=== PATIENT | female | born 1950 | race Caucasian/White ===

== ENCOUNTER → 2016-07-23 | Outpatient (CLI) | payer OTHER | LOC: FIMAGING 12:06 | PROVIDERS: ATTEND Registered Nurse | DX: Z12.31 Encounter for screening mammogram for malignant neoplasm of breast (principal) | CPT/HCPCS: G0202 ==

== ENCOUNTER 2016-12-23 13:41 | Observation (INO) | payer OTHER ==
--- NOTE | 2016-12-23 14:27 | CPEKG ---
Heart Rate: 65 RR Interval: 923 P-R Interval: 152 QRSD Interval: 74 QT Interval: 412 QTC Interval: 429 P [place]: 48 QRS [place]: 34 T Wave [place]: 46 EKG Severity - NORMAL ECG - EKG Impression: SINUS RHYTHM Electronically Signed By: Teo Mohamud 23-Dec-2016 15:02:50
[2016-12-23 14:53] LABS: % IMMATURE GRANULYOCYTES 0.4 % (0.0-1.1); ABSOLUTE IMMATURE GRANULOCYTES 0.03 10^3/uL (0.00-0.10); ADD DIFF? NO; ADD MORPH? NO; ADD SCAN? NO; ATYPICAL LYMPHOCYTE FLAG 0 (0-99); FRAGMENT RBC FLAG 0 (0-99); HEMOGLOBIN 14.9 g/dL (12.6-16.3); LEFT SHIFT FLG 0 (0-99); LIPEMIA HEMOLYSIS FLAG 90 (0-99); MEAN CELL HEMOGLOBIN 31.9 pg (27.9-34.1); MEAN CELL HEMOGLOBIN CONCENTR. 33.9 g/dL (32.4-36.7); MEAN CELL VOLUME 94.2 fL (81.5-99.8); MEAN PLATELET VOLUME 10.3 fL (8.7-11.7); PLATELET CLUMPS FLAG 0 (0-99); PLATELET COUNT 259 10^3/uL (150-400); RED BLOOD CELL COUNT 4.67 10^6/uL (4.18-5.33); RED CELL DISTRIBUTION WIDTH 12.6 % (11.5-15.2)
[2016-12-23] MEDS ORDERED: ASPIRIN 81 MG CHEWABLE TAB PO ONE (14:56)
--- NOTE | 2016-12-23 14:58 | EDPHY ---
H & P Time Seen by Provider: 12/23/16 14:27 HPI/ROS: CHIEF COMPLAINT: Chest tightness and shortness of breath HISTORY OF PRESENT ILLNESS: This 66-year-old wound is really active and swims 5 out of the 7 days of the week. She does have a history of hyperlipidemia and her father had a myocardial infarction at age 32. Patient presents with 3 days of symptoms. Thursday she noticed that this going up the stairs made her breathless and took her 15 minutes to recover. 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 With exertion she gets chest tightness and shortness of breath not associated with coughing. Relieved by rest. Symptoms moderate. Ongoing for the last 3 days. REVIEW OF SYSTEMS: Eye: no change in vision ENT: no sore throat Cardiac: HPI Pulmonary: No cough or hemoptysis Abdomen: no vomiting, diarrhea, abdominal pain Musculoskeletal: No leg swelling or edema Skin: no rash Neuro: no headache Constitutional: no fever : no urinary symptoms A comprehensive 10 point review of systems is otherwise negative aside from elements mentioned in the history of present illness. PAST MEDICAL HISTORY: Hyperlipidemia and sleep apnea. Family history positive for father with myocardial infarction at age 32 but he had rheumatic fever. Social history: Nonsmoker General Appearance: Alert and conversant, cooperative. Eyes: No scleral icterus. ENT, Mouth: Normal mucous membranes. Respiratory: Normal respiratory effort, breath sounds equal, lungs are clear to auscultation. Cardiovascular: Regular rate and rhythm. Gastrointestinal: Abdomen is soft and non tender. Neurological: Alert and oriented x3. Normally conversant. Face symmetric, normal movement and sensation in all extremities. Skin: Warm and dry, no rashes. Musculoskeletal: No peripheral edema and no joint swelling. No calf tenderness. Psychiatric: Not agitated. Emergency Department course/MDM: Oral aspirin 324, low probability for pulmonary embolism, D-dimer screening. Troponin. Likely need admission with moderately high suspicion for ACS. 1545: Discussed results, a suspicion high for unstable angina. Admit to hospitalist with cardiology consultation. Oscar 1553. Tanner Proctor 1629; in ED to see patient at 1645. Smoking Status: Never smoked Constitutional: Initial Vital Signs Temperature (C) 36.5 C 12/23/16 13:47 Heart Rate 68 12/23/16 13:47 Respiratory Rate 16 12/23/16 13:47 Blood Pressure 142/83 H 12/23/16 13:47 O2 Sat (%) 95 12/23/16 13:47 O2 Delivery Mode Room Air Allergies/Adverse Reactions: oxycodone Allergy (Verified 12/23/16 13:46) Home Medications: Medication Instructions Recorded Levothyroxine 12/23/16 Lipitor 12/23/16 Medical Decision Making - Diagnostics EKG Interpretation: 12-lead EKG interpreted by me; official reading is in trace master. My interpretation is sinus rhythm rate 65 no acute ischemic changes. Imaging Results: Imaging Impressions Chest X-Ray 12/23/16 14:56 Impression: No acute pulmonary disease. Chest x-ray, personally interpreted Differential Diagnosis: Differential diagnosis considered for chest pain including but not limited to myocardial ischemia, aortic dissection, pericarditis, pulmonary embolus, chest wall pain, pleural inflammation and pulmonary infectious causes. - Data Points Laboratory Results: Laboratory Results 12/23/16 14:30 12/23/16 14:30 12/23/16 12/23/16 12/23/16 15:20 14:30 14:30 WBC 7.02 10^3/uL 10^3/uL (3.80-9.50) RBC 4.67 10^6/uL 10^6/uL (4.18-5.33) Hgb 14.9 g/dL g/dL (12.6-16.3) Hct 44.0 % % (38.0-47.0) MCV 94.2 fL fL (81.5-99.8) MCH 31.9 pg pg (27.9-34.1) MCHC 33.9 g/dL g/dL (32.4-36.7) RDW 12.6 % % (11.5-15.2) Plt Count 259 10^3/uL 10^3/uL (150-400) MPV 10.3 fL fL (8.7-11.7) Neut % (Auto) 53.3 % % (39.3-74.2) Lymph % (Auto) 36.3 % % (15.0-45.0) Lee % (Auto) 8.0 % % (4.5-13.0) Eos % (Auto) 1.4 % % (0.6-7.6) Baso % (Auto) 0.6 % % (0.3-1.7) Nucleat RBC Rel Count 0.0 % % (0.0-0.2) Absolute Neuts (auto) 3.74 10^3/uL 10^3/uL (1.70-6.50) Absolute Lymphs (auto) 2.55 10^3/uL 10^3/uL (1.00-3.00) Absolute Monos (auto) 0.56 10^3/uL 10^3/uL (0.30-0.80) Absolute Eos (auto) 0.10 10^3/uL 10^3/uL (0.03-0.40) Absolute Basos (auto) 0.04 10^3/uL 10^3/uL (0.02-0.10) Absolute Nucleated RBC 0.00 10^3/uL 10^3/uL (0-0.01) Immature Gran % 0.4 % % (0.0-1.1) Immature Gran # 0.03 10^3/uL 10^3/uL (0.00-0.10) D-Dimer 0.45 ug/mLFEU ug/mLFEU (0.00-0.50) Sodium 144 mEq/L mEq/L (134-144) Potassium 4.0 mEq/L mEq/L (3.5-5.2) Chloride 107 mEq/L mEq/L (97-110) Carbon Dioxide 23 mEq/l mEq/l (22-31) Anion Gap 14 mEq/L mEq/L (8-16) BUN 12 mg/dL mg/dL (7-23) Creatinine 0.8 mg/dL mg/dL (0.6-1.0) Estimated GFR > 60 Glucose 94 mg/dL mg/dL (70-100) Calcium 9.3 mg/dL mg/dL (8.5-10.4) Troponin I < 0.012 ng/mL ng/mL (0.000-0.034) 12/23/16 14:20 WBC RBC Hgb Hct MCV MCH MCHC RDW Plt Count MPV Neut % (Auto) Lymph % (Auto) Lee % (Auto) Eos % (Auto) Baso % (Auto) Nucleat RBC Rel Count Absolute Neuts (auto) Absolute Lymphs (auto) Absolute Monos (auto) Absolute Eos (auto) Absolute Basos (auto) Absolute Nucleated RBC Immature Gran % Immature Gran # D-Dimer REJ Sodium Potassium Chloride Carbon Dioxide Anion Gap BUN Creatinine Estimated GFR Glucose Calcium Troponin I Medications Given: Discontinued Medications Aspirin (Aspirin) 324 mg PO EDNOW ONE Stop: 12/23/16 14:57 Last Admin: 12/23/16 15:02 Dose: 324 mg Departure - Departure Disposition: [facility] Inpatient Acute Clinical Impression: Dyspnea on exertion, Chest pain Condition: Good
[2016-12-23 15:02] LABS: ANION GAP 14 mEq/L (8-16); CALCIUM 9.3 mg/dL (8.5-10.4); CARBON DIOXIDE 23 mEq/l (22-31); CHLORIDE 107 mEq/L (97-110); CREATININE 0.8 mg/dL (0.6-1.0); GLOMERULAR FILTRATION RATE > 60; GLUCOSE 94 mg/dL (70-100); SODIUM 144 mEq/L (134-144)
[2016-12-23 15:13] LABS: TROPONIN I < 0.012 ng/mL (0.000-0.034)
[2016-12-23] MEDS ORDERED: IOPAMIDOL (ISOVUE 370) 100 ML BTL IV ONE (17:33)
[2016-12-23] MEDS ORDERED: ACETAMINOPHEN 325 MG TAB PO PRN (18:08)
[2016-12-23] MEDS ORDERED: ONDANSETRON DISINTEGRATING 4 MG TAB PO PRN (18:08)
[2016-12-23] MEDS ORDERED: ONDANSETRON 4 MG/2 ML VIAL IVP PRN (18:08)
--- NOTE | 2016-12-23 18:13 | GCON ---
[f rep st] CONSULTATION CARDIOLOGY CONSULTATION DATE OF CONSULTATION: 12/23/2016 REFERRING PHYSICIAN: Teo Mohamud MD INDICATIONS: Dyspnea on exertion. HISTORY OF PRESENT ILLNESS: The patient is a pleasant 66-year-old female seen in the emergency depa rtment in consultation for dyspnea on exertion. She has no known cardiovascular or pulmonary diseas e. Her cardiac risk factor profile includes hyperlipidemia and possible family history of early ath erosclerosis. At her baseline, she is fairly healthy. She notes that she is very active on a regul ar basis and likes to swim, do water fitness and go hiking. She is able to participate in these act ivities without any limitations. Beginning about 4 days ago, she began to experience exertional dys pnea. She notes that she gets very short of breath when she does minimal activities, such as going up and down her stairs, loading fairly light objects in her car and trying to take care of her 1 and 3-year-old grandchildren. Oftentimes, she becomes very short of breath to the point where she need s to stop and sit down and rest. She tried to do swimming in the pool the other day, however, becam e extraordinarily short of breath and had near-syncope. She had to rest and ultimately had to stop doing this activity. With her symptoms of dyspnea, she denies anginal quality chest discomfort. Sh e also notes no orthopnea, PND, or edema. She denies fever, chills or sweats and notes no cough. S he has not had any edema. She has no history of DVT or PE. She has no history of recent upper resp iratory infection. She has no history of malignancy. She denies wheezing. She has not had any hem optysis. Because of these symptoms, she came to the emergency department today. On arrival here, s he was noted to be mildly hypertensive at 142/83. Her heart rate was 68 beats per minute with room air saturations of 95%. Her initial ECG was unremarkable and her initial lab tests including tropon in and D-dimer were also normal. PAST MEDICAL HISTORY: 1. Hyperlipidemia. 2. Hypothyroidism. 3. Obstructive sleep apnea, on CPAP for the last 3 months. She reports that this has made her feel profoundly better. 4. History of torn meniscus, managed conservatively. PAST SURGICAL HISTORY: In 1975, she had an ACL repair on her right knee. In 2002, she also had a r ight ACL repair in her right knee. HOME MEDICATIONS: These include levothyroxine, atorvastatin, occasional Advil, fish oil, vitamin D. ALLERGIES: Oxycodone which causes nausea. SOCIAL HISTORY: She is and accompanied by her . They have been for 30+ year s. They have 4 children together. 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 She likes to exercise as noted above. She does not use alcohol and denies smoking at the present time. She does have a 6 pack-year history of smoking although quit 30 years ago. FAMILY HISTORY: Apparently her father had rheumatic fever and at the age of 32 from complicati ons related to a myocardial infarction. She has been in foster care since age 17 and has no sibling s. REVIEW OF SYSTEMS: A full 10-point review of systems was performed and is otherwise negative. PHYSICAL EXAMINATION: VITAL SIGNS: Her blood pressure is 132/78 with a mean of 97. Her heart rate is 68, respiratory rate 18, room air saturation 94%. She is afebrile. GENERAL: She is a healthy pleasant white female, in no acute distress. HEENT: Normocephalic, atraumatic. She has anicteric sclerae. Oropharynx unremarkable. Carotids are 2+ bilaterally with no bruits. She has no jugular venous distention, adenopathy or thyromegaly. RESPIRATORY: She is breathing easily, resting comfor tably, using no accessory muscles. On auscultation, she has clear lung becerra bilaterally. CARDIAC : Precordial inspection is unremarkable. PMI is nondisplaced. She has no reproducible chest wall tenderness. On auscultation, she has a regular rate and rhythm without murmurs, gallops, or rubs. ABDOMEN: Soft, nontender, with normoactive bowel sounds. She has no masses or hepatosplenomegaly. Abdominal aorta is not palpable. EXTREMITIES: Warm and well perfused. She has no lower extremity edema. VASCULATURE: She has 2+ radial, dorsal pedal and posterior tibial pulses noted bilaterally . DATABASE: Her electrocardiogram demonstrates sinus rhythm with a rate of 65 beats per minute. She has minor ST-segment and T-wave flattening in aVL. Her chest x-ray is unremarkable. CBC is normal. D-dimer 0.45. Basic metabolic panel negative. Troponin 0.012. IMPRESSION: The patient is 66 years old and is generally fairly healthy. She presents today with a fairly compelling four-day history of lifestyle-limiting dyspnea on exertion, currently [place] [employer] functional class 3. Her symptoms are associated with occasional episodes of effort- induced near-syncope and severe fatigue. Her initial workup including basic labs and ECG as well as chest x-ray are unremarkable. Specifically, her troponin and D-dimer are negative. Certainly at t his point, the differential diagnosis is very broad. Initial concerns were for possible acute coron leanne syndrome, pulmonary embolism, pericardial disease or potentially acute valvular heart disease. She does not appear to be suffering from any form of pulmonary disease or infectious process at the present time, and her labs as stated above are normal. RECOMMENDATIONS: 1. She will be admitted to telemetry and monitored. 2. I have ordered additional laboratory tests to include brain natriuretic peptide, TSH, lipids and hemoglobin A1c. 3. I have ordered an echocardiogram. 4. I would like her to get a CTA despite her normal D-dimer. 5. She will be kept n.p.o. after midnight in anticipation of possible coronary angiogram tomorrow d epending on her workup and overnight hospital course. /[id number]/MODL
[2016-12-23 19:10] LABS: CHOLESTEROL 191 mg/dL (140-220); CHOLESTEROL/HDL RATIO 4.06 RATIO (1.00-4.44); HIGH DENSITY LIPOPROTEIN 47 mg/dL (40-85); LDL/HDL RATIO 2.34 RATIO (1.00-3.22); LOW DENSITY LIPOPROTEIN 110 mg/dL (80-100); NON-HIGH DENSITY LIPOPROTEIN 144 mg/dL (90-129); TRIGLYCERIDE 174 mg/dL (35-135); VERY LOW DENSITY LIPOPROTEINS 34 mg/dL (8-25)
--- NOTE | 2016-12-23 19:29 | GHP ---
[f rep st] HISTORY AND PHYSICAL DATE OF ADMISSION: 12/23/2016 CHIEF COMPLAINT: Shortness of breath. HISTORY OF PRESENT ILLNESS: A 66-year-old female with a history of GERD, hyperlipidemia, hypothyroidism and sleep apnea, presented to the ER for dyspnea with exertion. She denies any cardiac disease. She says she has noticed symptoms over the past week, worse over the last 4 days. She is short of breath with activities like climbing stairs. Denies any associated chest pain, associated nausea, vomiting, diaphoresis, numbness or tingling. No orthopnea. Has positive PND, that is new. No lower extremity swelling. She normally hikes and swims 5 days a week without any difficulty breathing. While swimming in the pool the other day she became very short of breath and almost passed out. No recent travel. No fevers, chills or sweats. No cough. REVIEW OF SYSTEMS: I completed a 10-point review of systems, negative except as noted in HPI. PAST MEDICAL HISTORY: Depression, diverticulitis, fibroids, GERD, hyperlipidemia, hypothyroidism, JAMAR started on CPAP 3 months ago. PAST SURGICAL HISTORY: Right ACL repair. SOCIAL HISTORY: Lives in [place], son is here with her. Two glasses of wine a week. Smoked 7 years, 1 pack a day, over 30 years ago. FAMILY HISTORY: Father of [place] at 32, had rheumatic fever. HOME MEDICATIONS: Levothyroxine, atorvastatin, Advil, fish oil, vitamin D. ALLERGIES: Oxycodone with nausea. PHYSICAL EXAM: VITAL SIGNS: Temperature 36.8, blood pressure 146/83, heart rate 52-60, respirations 16, 99% on room air. GENERAL: Well-appearing female, sitting up in bed, eating dinner with no acute distress. HEENT: PERRLA. EOMI. Oropharynx clear. CV: Bradycardic. No murmurs, gallops, or rubs. Trace pedal edema on the left. No JVD. LUNGS: Clear. No crackles or wheezing. ABDOMEN: Soft, nontender, nondistended. Positive bowel sounds. : No suprapubic tenderness. MUSCULOSKELETAL: 5/5 upper lower extremity strength. NEURO: 2 through 12 intact. PSYCHIATRIC: Alert and oriented x3. LABS: WBC 7, hemoglobin 14, hematocrit 42, platelets 259. Sodium 144, potassium 4.0, chloride 107, anion gap 14, BUN 12, calcium 9.2. Troponin less than 0.012. BNP and TSH are pending. CTA negative for PE. No dissection. Small hiatal hernia. No effusion. Chest x-ray personally reviewed by me. No effusion or edema. EKG, personally reviewed by me, normal sinus rhythm. No ST elevation. Mild ST flattening in lead III. ASSESSMENT AND PLAN: 1. Dyspnea: Differential includes acute coronary syndrome,infection, pulmonary embolism, or anginal equivalent. D-dimer and CTA negative for thrombosis or dissection. BNP is pending. Initial troponin and EKG are negative for ischemia. Dr. Proctor with Cardiology consulted, appreciate his assistance. TTE is pending. The patient may undergo cardiac cath in morning given symptoms may be an anginal equivalent. 2. Obstructive sleep apnea, continue CPAP. 3. Gastroesophageal reflux disease. Proton pump inhibitor. 4. Hyperlipidemia, statin. 5. Hypothyroidism, Synthroid. 6. Diet, n.p.o. after midnight. 7. Deep venous thrombosis prophylaxis. Lovenox. DISPOSITION: The patient warrants observation admission given dyspnea with exertion with possible anginal equivalent requiring telemetry echocardiogram. /[id number]/MODL MTDD
[2016-12-23 20:23] LABS: HEMOGLOBIN A1C 5.7 % (4.0-6.0)
[2016-12-24] MEDS ORDERED: diphenhydrAMINE 25 MG CAP PO ONE ×2 (08:35→13:29)
[2016-12-24] MEDS ORDERED: DIAZEPAM 5 MG TAB PO ONE (08:35)
[2016-12-24] MEDS ORDERED: ASPIRIN EC 325 MG TAB PO ONE ×2 (08:35→13:29)
[2016-12-24] MEDS ORDERED: Herbals/Supplements -Info Only PO SCH (09:00)
--- NOTE | 2016-12-24 09:04 | CPEKG ---
Heart Rate: 50 RR Interval: 1200 P-R Interval: 156 QRSD Interval: 72 QT Interval: 464 QTC Interval: 424 P [place]: 44 QRS [place]: 12 T Wave [place]: 59 EKG Severity - NORMAL ECG - EKG Impression: SINUS RHYTHM Electronically Signed By: Kashif Healy 24-Dec-2016 15:30:25
[2016-12-24] MEDS: ATORVASTATIN CALCIUM 10 MG TAB PO SCH (09:55)
[2016-12-24] MEDS: LEVOTHYROXINE 100 MCG TAB PO SCH (09:55)
--- NOTE | 2016-12-24 10:32 | ECHO ---
[id number] + + [address] : : [place] [address] : : [phone] + Adult Echocardiographic Report + ------+ :Name: SANJUANITA ROYAL DStudy Date: 12/24/2016 08:39 AM : : Hospital Admission Number: [id number] Locatio n: 203: :: 1950 Gender: Female Height: 68 in : :Age: 66 yrs Race: WH Weight: 175 lb : :Reason For Study: FRAGA : : BSA: 1.9 meters 2 : + ------+ MMode/2D Measurements \T\ Calculations IVSd: 0.89 cm LVIDd: 4.9 cm FS: 38.9 % Ao root diam: LVPWd: 0.78 cm LVIDs: 3.0 cm EDV(Teich): 3.5 cm 114.4 ml LA dimension: ESV(Teich): 3.6 cm 35.4 ml EF(Teich): 69.1 % LVLd ap4: 8.0 cm SV(MOD-sp4): EDV(MOD-sp4): 34.0 ml 51.0 ml LVLs ap4: 6.3 cm ESV(MOD-sp4): 17.0 ml EF(MOD-sp4): 66.7 % Normal Measurement Values: + + :LVIDd (3.5-5.7cm) IVSd (0.6-1.1cm) LVPWd (0.6-1.1cm) Aortic Root (2.0-3.7cm)Left Atrium (1.5-4.0cm): :LV Vol(d) (76-115ml) LV Vol(s) (29-48ml) Ejec Fraction (50-65%)PV Jason (0.6- 1.2m/s) TV Jason (0.4-1.0m/s) : :MV E Jason (0.8-1.0m/s)MV A Jason (0.3-1.0m/s)LVOT Jason (0.7-1.2m/s) Asc Ao Jason ( 0.9-1.8m/s) : + + Doppler Measurements \T\ Calculations MV E max jason: Ao V2 max: AI max jason: TR max jason: 65.2 cm/sec 119.4 cm/sec 438.7 cm/sec 186.0 cm/sec MV A max jason: Ao max PG: AI max P.0 mmHgTR max P.3 cm/sec 5.7 mmHg AI dec slope: 13.8 mmHg MV E/A: 1.2 210.1 cm/sec2 RAP systole: AI P1/2t: 611.6 msec5.0 mmHg RVSP(TR): 18.8 mmHg Left Ventricle The left ventricle is normal in size. There is normal left ventricular wall thickness. Left ventricular systolic function is normal. Ejection Fraction = 65-70%. No regional wall motion abnormalities noted. Right Ventricle The right ventricle is normal in size and function. Atria The left atrial size is normal. Right atrial size is normal. The interatrial septum is intact with no evidence for an atrial septal defect. Mitral Valve The mitral valve is normal in structure and function. There is no evidence of mitral valve prolapse. There is no mitral valve stenosis. There is trace mitral regurgitation. Tricuspid Valve Normal tricuspid valve. There is mild tricuspid regurgitation. Right ventricular systolic pressure is normal. Aortic Valve The aortic valve is trileaflet. The aortic valve opens well. There is no aortic stenosis. Mild aortic regurgitation. Pulmonic Valve The pulmonic valve is normal in structure and function. There is no pulmonic valvular regurgitation. Great Vessels The aortic root is normal size. Pericardium/Pleural There is no pericardial effusion. There is a fat pad seen. Conclusion A complete two-dimensional transthoracic echocardiogram was performed (2D, M-mode, Doppler and color flow Doppler). Technically limited study with poor acoustic windows. Normal LV size and wall motion. Left ventricular systolic function is normal. Ejection Fraction = 65-70%. Normal diastolic function. Normal appearing valves. There is mild tricuspid regurgitation. Mild aortic regurgitation. Right ventricular systolic pressure is normal. There is a fat pad seen. Final Reading Physician: Cande Gregorio signed on 12/24/2016 10:30 AM Ordering Physician: Jesus Proctor Performed By: Geneva Salazar, SULEMANCS
[2016-12-24] MEDS: ENOXAPARIN 40 MG/0.4 ML SYR SC SCH (11:32)
[2016-12-24] MEDS ORDERED: FAMOTIDINE 20 MG TAB ONE (13:29)
[2016-12-24] MEDS ORDERED: DIAZEPAM 5 MG TAB ONE (13:30)
[2016-12-24] MEDS ORDERED: LIDOCAINE 1% 300 MG/30 ML SDV ONE (13:55)
[2016-12-24] MEDS ORDERED: VERAPAMIL 5 MG/2 ML VIAL ONE (13:56)
[2016-12-24] MEDS ORDERED: IOPAMIDOL (ISOVUE-370) 150 ML BTL IV ONE (13:56)
[2016-12-24] MEDS ORDERED: HEPARIN 10,000 UNIT/10 ML MDV ONE (13:56)
[2016-12-24] MEDS ORDERED: fentaNYL 100 MCG/2 ML INJ ONE (14:04)
[2016-12-24] MEDS ORDERED: MIDAZOLAM 2 MG/2 ML VIAL ONE (14:04)
[2016-12-24] MEDS ORDERED: ATROPINE SULFATE 1 MG/10 ML SYR IVP PRN (15:19)
--- NOTE | 2016-12-24 15:28 | PDDXCAT ---
Diagnostic Cath Note - . 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 Trifurcates into the left anterior descending, ramus intermedius and circumflex vessels. Normal angiographic appearance. LAD: Large caliber transapical vessel. 2 diagonal branches identified. Normal angiographic appearance. LCX: Moderate caliber vessel. Single obtuse marginal branch. Normal angiographic appearance. RCA: Small caliber vessel. Codominant with the circumflex. Very tiny PDA identified. Otherwise angiographically normal. Ramus: Large caliber vessel. Supplies a large portion of the left anterolateral wall. Angiographically normal in appearance. EDP: 16 mmHg. LVEF: Hyperdynamic. Greater than 70% ejection fraction. Normal wall motion. Wall motion: Normal. - Findings-Right Heart Catheterization RA: 13 mmHg; 82.2% saturation. RV: 36/7/17 mmHg; 79.8% saturation. PA: 39/12/23 mmHg; 82.4% saturation. PAOP: 15 mmHg. AO: 155/74/108 mmHg. CO: 7.7 liters/minute; QP:QS of 0.9. Complications: None. Estimated blood loss: <50ml Closure method: TR Band Assessment: Angiographically normal epicardial coronary arteries in a codominant system with a large ramus intermedius. Normal to hyperdynamic left ventricular systolic function with no wall motion abnormalities. Well compensated right heart catheterization with normal filling pressures and cardiac output. No evidence of intracardiac shunt. No etiology identified to the patient's complaints of dyspnea. Plan: Patient will be evaluated for an alternate etiology to her dyspnea. Intervention: None. Patient Problems: Problems Problem Status Onset Chest pain Acute Dyspnea on exertion Acute
--- NOTE | 2016-12-24 17:23 | SOAPPROG ---
ASHLEY Progress Note Assessment/Plan: Assessment/Plan: At this point, the etiology for her dyspnea has not been defined. Her cardiovascular testing has been normal. We will plan to proceed with further testing to include pulmonary function testing and possibly an MVO2 test as an outpatient. I think that she can be discharged from the hospital after an appropriate period of monitoring. 12/24/16 17:21 Subjective: She has done well since she was admitted. She has not had any chest discomfort and at rest denies symptoms of dyspnea. Today, she underwent an echocardiogram as well as a right left heart catheterization. Those studies are located in the chart in separately dictated reports and were essentially normal. Objective: Vital Signs Temp Pulse Resp BP Pulse Ox 36.9 C 50 L 16 149/72 H 95 12/24/16 16:40 12/24/16 16:40 12/24/16 16:40 12/24/16 16:40 12/24/16 16:40 12/23/16 12/24/16 12/25/16 05:59 05:59 05:59 Intake Total 400 Balance 400 Physical Exam - Physical Exam General Appearance: WD/WN, no apparent distress Neck: non-tender, full range of motion Respiratory: lungs clear Cardiac/Chest: regular rate, rhythm, No edema, No gallop, No JVD Peripheral Pulses: 2+: carotid (R), carotid (L) Abdomen: non-tender Pelvic Exam: deferred Rectal: deferred Neuro/Psych: alert, oriented x 3 ICD10 Worksheet Patient Problems: Problems Problem Status Onset Chest pain Acute Dyspnea on exertion Acute
--- NOTE | 2016-12-24 17:42 | PDDCSUM ---
Discharge Summary Discharge Summary: DISCHARGE SUMMARY FOLLOW-UP ITEMS: Outpatient pulmonary function test DATE OF ADMISSION: 12/23/16 DATE OF DISCHARGE: 12/24/2016 DISCHARGE DIAGNOSES: 1. Acute dyspnea on exertion CONSULTATIONS: Cardiology PROCEDURES / IMAGING: Cardiac catheterization demonstrating normal coronary arteries, echocardiogram demonstrating normal ejection fraction, CT angiogram of the chest demonstrating no pulmonary embolism with a small hiatal hernia CHIEF COMPLAINT: Dyspnea on exertion SUBJECTIVE: Patient is feeling well at time of discharge PHYSICAL EXAM ON DISCHARGE: Systolic blood pressure is 110-140, heart rate 50-77, afebrile overnight, satting well on room air, lungs are clear to auscultation bilaterally, patient is alert awake oriented x3 LABS ON DISCHARGE: D-dimer negative, hemoglobin A1c 5.7%, LDL 110 HOSPITAL COURSE BY PROBLEM: 1. Acute dyspnea on exertion. The patient presented with 3-4 days of shortness of breath provoked by normal activities such as walking up or down the stairs, in a normally physically active patient. She was ruled out for acute coronary syndrome, ruled out for obstructive coronary disease, ruled out for pulmonary embolism, ruled out for cardiomyopathy. The next step in management is to evaluate for pulmonary outflow obstruction, and I have recommended outpatient pulmonary follow up with Dr. Junior, with pulmonary function tests in the office. I have discussed this with Dr. Junior and he agrees with this plan. DISCHARGE MEDICATIONS: Please see official discharge medication reconciliation sheet in chart , no changes to medications. DISCHARGE INSTRUCTIONS: Please follow up with Dr. Junior.
[2016-12-25] MEDS: LEVOTHYROXINE 100 MCG TAB PO SCH (06:29)
[2016-12-25 07:50] VITALS: BP 134/84; PULSE 59; RESP 12; TEMP 98.3; O2SAT 97
[2016-12-25] MEDS: ATORVASTATIN CALCIUM 10 MG TAB PO SCH (08:32)
[2016-12-25] MEDS: ENOXAPARIN 40 MG/0.4 ML SYR SC SCH (08:33)
== END 2016-12-25 12:29 | disposition home or self-care (01) ==
LOC: F2W 17:08
PROVIDERS: ADMIT Internal Medicine; ATTEND Internal Medicine
PROC: B2151ZZ Fluoroscopy of Left Heart using Low Osmolar Contrast (ICD-10-PCS; principal; 2016-12-23)
PROC: B2111ZZ Fluoroscopy of Multiple Coronary Arteries using Low Osmolar Contrast (ICD-10-PCS; principal; 2016-12-23)
PROC: 4A023N8 Measurement of Cardiac Sampling and Pressure, Bilateral, Percutaneous Approach (ICD-10-PCS; principal; 2016-12-23)
DX: R06.09 Other forms of dyspnea (principal); E78.5 Hyperlipidemia, unspecified; Z82.49 Family history of ischemic heart disease and other diseases of the circulatory system; K21.9 Gastro-esophageal reflux disease without esophagitis; E03.9 Hypothyroidism, unspecified; G47.33 Obstructive sleep apnea (adult) (pediatric); Z87.891 Personal history of nicotine dependence
CPT/HCPCS: 71020; 71275; 93005; 93306; 93460; 99285; C1769; G0378; J1644; J1650; J2250; J3010; Q9967

== ENCOUNTER → 2017-08-31 | Outpatient (CLI) | payer OTHER | LOC: FIMAGING 10:53 | PROVIDERS: ATTEND Registered Nurse | DX: Z12.31 Encounter for screening mammogram for malignant neoplasm of breast (principal) ==

== ENCOUNTER → 2017-09-01 | Outpatient (CLI) | payer OTHER | LOC: FIMAGING 13:00 | PROVIDERS: ATTEND Registered Nurse | DX: Z13.820 Encounter for screening for osteoporosis (principal); E07.9 Disorder of thyroid, unspecified; Z78.0 Asymptomatic menopausal state; Z79.899 Other long term (current) drug therapy ==